=== PATIENT | female | born 1965 | race Caucasian/White ===

== ENCOUNTER 2023-12-21 15:21 | Outpatient (CLI) | payer OTHER | END 2023-12-21 15:22 | disposition home or self-care (01) | LOC: SCSMRI 15:21 | PROVIDERS: ATTEND Surgery | DX: M48.061 Spinal stenosis, lumbar region without neurogenic claudication (principal); M43.16 Spondylolisthesis, lumbar region; M47.816 Spondylosis without myelopathy or radiculopathy, lumbar region; M48.07 Spinal stenosis, lumbosacral region; M51.369 Other intervertebral disc degeneration, lumbar region without mention of lumbar back pain or lower extremity pain | CPT/HCPCS: 72148 ==